=== PATIENT | male | born 1945 | race Caucasian/White ===

== ENCOUNTER 2020-11-25 04:22 | Day surgery (SDC) | payer OTHER, BC ==
[2020-11-24 09:00] VITALS: BMI 31.6
[2020-11-25] MEDS ORDERED: ACETAMINOPHEN 1000 MG/100 ML VIAL (NON FORMULARY) IVPB ONE (12:33)
[2020-11-25] MEDS ORDERED: DEXTROSE 5%-0.45% SALINE 1,000 ML IV SCH (12:45)
[2020-11-25] MEDS ORDERED: KETOROLAC TROMETHAMINE 30 MG/1 ML VIAL ONE (13:09)
[2020-11-25] MEDS ORDERED: MIDAZOLAM HCL 2 MG/2 ML SINGLE DOSE VIAL ONE (13:10)
[2020-11-25] MEDS ORDERED: PROPOFOL 20 ML ONE (13:10)
[2020-11-25 15:51] VITALS: BP 139/70; PULSE 60; TEMP 97.9
== END 2020-11-25 15:15 | disposition home or self-care (01) ==
LOC: JASU-SURG 04:22
PROVIDERS: ATTEND Urology
PROC: 0TF4XZZ Fragmentation in Left Kidney Pelvis, External Approach (ICD-10-PCS; principal; 2020-11-25 12:00)
DX: N20.0 Calculus of kidney (principal)